=== PATIENT | female | born 1990 | race African-American/Black ===

== ENCOUNTER 2017-03-08 14:13 | Emergency (ER) | payer MEDICAID ==
[~2017-03-08] VITALS: Ht 165.1 cm; Wt 46.9 kg
[2017-03-08 14:15] VITALS: BP 115/89
[2017-03-08] MEDS ORDERED: OXYcodone/APAP 5/325MG TABLET PO ONE (15:30)
[2017-03-08] MEDS ORDERED: OXYcodone/APAP 5/325MG TABLET ONE (15:30)
== END 2017-03-08 16:05 | disposition home or self-care (01) ==
LOC: ED 15:56
DX: S92.425A Nondisplaced fracture of distal phalanx of left great toe, initial encounter for closed fracture (principal); S60.511A Abrasion of right hand, initial encounter; W10.9XXA Fall (on) (from) unspecified stairs and steps, initial encounter; Y93.89 Activity, other specified; Y92.89 Other specified places as the place of occurrence of the external cause; Y99.8 Other external cause status
CPT/HCPCS: 99284